=== PATIENT | male | born 1940 | race Caucasian/White ===

== ENCOUNTER 2016-12-19 11:32 | Inpatient (IN) | payer OTHER ==
--- NOTE | ~2016-12-19 | DS ---
Discharge Summary [facility] [address] [place]. [address] NAME: MARGUERITE ALAN : 42 STATUS : DIS IN PAT#: [id number] AGE: 76 ADM/REG DATE : 12/19/16 MR#: [id number] REPORT SERV DATE: 01/05/17 DICTATED BY: SYMONE ESPINOZA DATE: 01/04/17 REPORT STATUS : Draft TRANSCRIBED BY: EDVIN DATE: 01/04/17 Data Collection from hospitalization DISCHARGE DIAGNOSES: 1. 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 2. Hypertension. 3. Diabetes. 4. Anemia. 5. Osteoarthritis. 6. History of heart attack. 7. Heart disease. 8. End-stage renal disease, on hemodialysis. CONSULTATIONS: Dr. Afshin Davis. Dr. Swan. PROCEDURES: Right total knee revision arthroplasty, 12/19/2016. PATHOLOGY: Bone and joint, right knee, total knee - orthopedic hardware, degenerative changes - extensive. DISCHARGE MEDICATIONS: ProAir two puffs via inhaler every six hours as needed, Norvasc 5 mg twice a day, aspirin 81 mg daily, Lipitor 40 mg at bedtime, Symbicort two puffs via inhaler twice a day, Coreg 6.25 mg twice a day, Plavix 75 mg daily, fenofibrate 160 mg daily, Lasix 80 mg daily, Neurontin 100 mg as instructed and 300 mg at bedtime, DiaBeta 5 mg with breakfast and supper, Apresoline 50 mg four times a day, [place] 7.5/325 one to two tablets every 4-6 hours as needed, Humulin N 5 units subcutaneously twice a day, Imdur 240 mg daily, Habitrol one patch topically daily, Zantac 150 mg twice a day, Carafate 1 g twice a day, Coumadin 3 mg daily. CONDITION AT DISCHARGE: Stable. DISPOSITION: The patient was discharged home to be followed by home health care on a renal- diabetic diet with activities as instructed. He would follow up with me on 01/01/2017. HOSPITAL COURSE: This is a 76-year-old man, whom I had seen for recheck of right TKA pain. He had apparently been scheduled for revision of total right knee arthroplasty, but had that surgery canceled due to some cardiac issues that showed up on preop testing. He was now clear to undergo surgical intervention. The patient has failed right total knee arthroplasty which had been performed by another surgeon. Treatment options were discussed and it was elected to proceed with surgical intervention. He was admitted to the hospital at this time for further evaluation and treatment. Upon admission, he was taken to the operating room where he underwent the above-mentioned procedure. He tolerated this well and there were no complications. On postop day #1, he was doing well. He was resting. DANICA hose were in place. Dialysis therapy was going to be performed. Creatinine level was 2.66. The patient was seen by Dr. Pawan Swan. He had been asked to evaluate the patient regarding hemodialysis. The patient has end-stage renal disease. Plans were being made for hemodialysis therapy to be performed the following Discharge Summary [address] [address] NAME: MARGUERITE ALAN : 41 STATUS : DIS IN PAT#: [id number] AGE: 76 ADM/REG DATE : 12/19/16 MR#: [id number] REPORT SERV DATE: 01/05/17 DICTATED BY: SYMONE ESPINOZA DATE: 01/04/17 REPORT STATUS : Draft TRANSCRIBED BY: EDVIN DATE: 01/04/17 day. On the , he was doing well. He was participating with Physical Therapy. He had been evaluated by Occupational and Physical Therapy. Hemodialysis therapy was performed. On 12/22/2016, he was seen by Dr. Afshin Davis regarding right prosthetic knee infection. The patient had been found to have some "benign" fluid under the quadriceps upon incision on 12/19/2016. His hardware components were loose and were removed and new hardware was placed. There was only one culture sent from this fluid which grew sparse Staph species, yet to be identified. Gram stain showed occasional white blood cells but no organisms. No bone had been cultured. It was felt that this culture result could be a contaminant. Vancomycin was being given for now. Blood cultures were obtained. DiaBeta and Levemir were continued as well as level 2 sliding scale insulin. Imdur was also continued. He was being given Dulera inhaler. His Lipitor was continued as well as Plavix and aspirin. The next day, he had good pain control. He continued to undergo hemodialysis. He ended up sitting in the bedside chair. The patient said that he takes lactulose every other day for high ammonia level. Blood cultures revealed no growth at this time. On the , he said the right knee was sore after using it. His cultures had shown very sparse staph. He was going to be on IV Ancef for about six weeks. He continued to progress. Discharge planning was performed. On 12/26/2016, he was ambulating in his room. He had no new complaints. He was wanting to go home. Discharge instructions were given. Due to his improved and stable condition, he was discharged home to be followed by home health care with the above-stated instructions. Information collected by: Lorena Simons I submit the above information as my discharge summary. TG/MODL Jerad Espinoza M.D. / [id number] CC: Elmo Coon Lisa M Paul Cornea, M.D. Joseph Watlington, M.D.
--- NOTE | ~2016-12-19 | CN ---
Consultation Report [facility] [address] [place]. [address] NAME: MARGUERITE ALAN : 42 STATUS : ADM IN PAT#: [id number] AGE: 76 ADM/REG DATE : 12/19/16 MR#: [id number] REPORT SERV DATE: 12/22/16 DICTATED BY: LAMAR GAMING DATE: 12/22/16 REPORT STATUS : Draft TRANSCRIBED BY: MODChely DATE: 12/22/16 INFECTIOUS DISEASE CONSULTATION DATE OF CONSULTATION: REASON FOR CONSULT: Right prosthetic knee infection. HISTORY OF PRESENT ILLNESS: 76-year-old white male with a history of end-stage renal disease on hemodialysis, right knee replacement, right shoulder replacement, coronary artery disease, status post CABG, diabetes, hypertension, liver cirrhosis, who had an elective right prosthetic knee redo surgery. At about three years ago, he had a right knee replacement done at [facility] by Dr. Ho. The patient states that there were no immediate complications, but had persistent and progressive pain ever since. He needed something done, but because of coronary condition with stent placement, the surgery had to be delayed twice. He thinks he has had persistent swelling and pain in the knee. The pain got progressively worse that he might have had persistent warmth and maybe occasional redness. No fever, no chills, but he had some sweats. He thinks that he received some rounds of antibiotics from Dr. Ho in the past, but stopped seeing him about two years ago. He was referred instead to Dr. Alvarez. He thinks Dr. Alvarez tapped the knee in the past. I do not find any prior cultures in our computer. Three days ago, 12/19/2016, he had right knee surgery. There is some "benign" fluid under the quadriceps upon incision that was sent for culture. Hardware components were loose and were removed and new hardware was placed. There was only one culture sent from this fluid that grew sparse Staph species yet to be identified. Gram stain showed occasional white blood cells, no organisms. The patient complains some chronic dyspnea on exertion, some chronic abdominal pain, maybe some constipation. He eats well. He does not have urinary problems. Laboratory work shows WBC 3.8, hemoglobin 9.5, platelets 113. INR 4.4. Ammonia 53. PAST MEDICAL HISTORY: As I mentioned above plus there is a mention that the CT scan in the past showed evidence of liver cirrhosis with splenomegaly that he might have myelodysplastic syndrome. I am not sure how that diagnosis was made. He had the right shoulder replacement by Dr. Cueto some years ago and it gives him no problems, also history of hemorrhoids. SOCIAL HISTORY: He quit smoking in the past. He is retired. Lives alone. Does not work outdoors. ALLERGIES: NONE. MEDICATIONS ON ADMISSION: Albuterol, amlodipine, aspirin, Lipitor, Symbicort, carvedilol, Plavix, fenofibrate, Lasix, gabapentin, glyburide, hydralazine, insulin, Imdur, nicotine patch, Zantac, and Carafate. Consultation Report [address] [address] NAME: MARGUERITE ALAN : 42 STATUS : ADM IN [facility]#: [id number] AGE: 76 ADM/REG DATE : 12/19/16 MR#: [id number] REPORT SERV DATE: 12/22/16 DICTATED BY: LAMAR GAMING DATE: 12/22/16 REPORT STATUS : Draft TRANSCRIBED BY: EDVIN DATE: 12/22/16 PHYSICAL EXAMINATION: GENERAL: He is alert, awake. No acute distress. There is large abdomen. HEENT: Sclerae are white. No oral thrush. LUNGS: Clear to auscultation. No wheezes, rhonchi, or rales. HEART: Regular rhythm. ABDOMEN: Very large, obese, nontender to palpation. EXTREMITIES: Right knee with surgical dressing. Arms, very dark skin, few scars. Left forearm AV fistula with good thrill. LABORATORY WORK: As I mentioned. ASSESSMENT AND PLAN: 1. The patient with chronic right knee pain after right knee replacement. He had a redo procedure three days ago. Operative cultures growing sparse Staph species. Unfortunately, only one culture was obtained and the intraoperative description was not suggestive of an of purulence or gross infection. No bone was cultured. This could be a contaminant. Probably, need to discuss with Dr. Alvarez. There is no bone pathology. Use vancomycin for now. Blood cultures were sent. 2. End-stage renal disease, on hemodialysis. Obviously, this could be a source of infection. 3. Diabetes, coronary artery disease, hypertension, and cirrhosis. I discussed with the patient. EMILIO/MODL Lamar Gaming M.D. / [id number] CC: Elmo Coon LISA M
--- NOTE | ~2016-12-19 | OP ---
Record Of Operation [facility] [address] [place]. 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 POSTOPERATIVE DIAGNOSIS: Failed right total knee arthroplasty, done by another surgeon. PROCEDURE: Right total knee revision arthroplasty. [employer] SUPERINTENDENT: See chart. DESCRIPTION OF PROCEDURE: The patient was taken to the operating room and placed supine on the table in normal fashion without incident. General anesthetic was induced per the anesthesiologist. The patient was carefully positioned, padded, prepped, and draped in normal sterile fashion. The right lower extremity was exsanguinated. Tourniquet was inflated to 350. A sharp dissection was made through the old incision with electrocautery through the fat. Sharp quad splitting approach was carried out. A benign-appearing fluid was sent for cultures and Gram stain. The patella was subluxed and the tibial insert was removed with an osteotome. The femoral and tibial components were easily removed with flexible osteotomes and has obvious loosening with severe lysis under both of them. The cement was meticulously debrided. Sequential reamers were used to an 18 in the femur and tibia and the intramedullary guide was used to cut the proximal tibia and distal femur. Ruler was used to verify flexion and extension balance. The remaining cuts were made using intramedullary guides on the distal femur. With trial components in place, there was excellent medial and lateral balance and excellent flexion and extension balance. The patella was cut with an oscillating saw and drilled with the patella drill guide. With the trial patella in place, there was excellent patellar tracking. All surfaces were copiously irrigated with pulsatile lavage and the components were assembled on the back table. Premixed antibiotic was pressurized in a doughy phase in the tibia. Tibial component placed, impacted, and excess cement removed. Cement was pressurized in the femur and placed on the posterior runners of the femoral component, which was placed, impacted, and excess cement removed. Knee was brought out into extension on a trial spacer. Cement was pressurized in the patella. The patellar component was placed, held with a clamp, and excess cement removed. Once all cement was hardened, the knee was taken through range of motion. Further extruded cement was removed with a small osteotome. The actual insert was then placed, impacted, and checked to be sure it was down snug. The knee was closed in layered fashion over medium ConstaVac drain superolaterally. The wound was dressed sterilely. The patient was awakened and taken to the postanesthesia care unit without incident. COMPLICATIONS: None. SPECIMENS: Components and cultures. ESTIMATED BLOOD LOSS: Trace. Record Of Operation [address] [place]. [address] NAME: MARGUERITE ALAN : 42 STATUS : ADM IN [facility]#: [id number] AGE: 76 ADM/REG DATE : 12/19/16 MR#: [id number] REPORT SERV DATE: 12/20/16 DICTATED BY: SYMONE ESPINOZA DATE: 12/20/16 REPORT STATUS : Draft TRANSCRIBED BY: EDVIN DATE: 12/20/16 WTB/EDVIN Jerad Espinoza M.D. / [id number] CC: Elmo Coon LISA M *
[~2016-12-19 11:32] MED LIST: APRES50 PO; ASAB PO; CONSTULOSE PO; COREG6 PO; DIABETA5 PO; ENULOSE PO; FLORASTOR250 MG PO; HABIT21 TOP; HUMULIN N1 ML SC; ICY HOT16 % TOP; IMDUR120 PO; L80 PO; LIPITOR40 PO; LOFIB160 PO; NEUR100 PO; NEUR300 PO; NICODERM C21 MG/241 TOP; NORCO1 TAB PO; NORV5 PO; PLAVIX PO; PROAIR HFA INH; PROAIRRESP INH; PROTONIX PO; SUCR PO; SYMBICORT 80/4.1 INH INH; VOLTAREN1 % TOP; XIFAXAN550 MG PO; ZANTAC 150 PO; ZANTAC150 MG PO
[2016-12-19 15:29] LABS: WBC (NOT ORDERED) (RFLEX) 0 (0-5)
[2016-12-19 15:31] LABS: BASOPHILS 1.1 %; BASOPHILS ABSOLUTE 0.07 10/3/uL (0.0-0.16); EOSINOPHILS 2.3 %; EOSINOPHILS ABSOLUTE 0.14 10/3/uL (0.0-0.53); IMMATURE GRANULOCYTES 0.8 %; IMMATURE GRANULOCYTES ABSOLUTE 0.05 10/3/uL (0.0-0.11); LYMPHOCYTES 10.1 %; LYMPHOCYTES ABSOLUTE 0.62 10/3/uL (0.67-4.30); MEAN CORPUSCULAR HEMOGLOB 31.3 pg (26.0-34.0); MEAN PLATELET VOLUME 10.6 fL (9.2-13.0); MONOCYTES 9.3 %; MONOCYTES ABSOLUTE 0.57 10/3/uL (0.21-1.20); NEUTROPHILS 76.4 %; NEUTROPHILS ABSOLUTE 4.66 10/3/uL (2.02-8.40); PLATELET COUNT 134 10/3/uL (150-400); WHITE BLOOD CELLS 6.1 10/3/uL (4.5-10.5)
[2016-12-19 15:34] LABS: HEMATOCRIT 38.9 % (40.0-51.0); HEMOGLOBIN 12.5 g/dL (13.6-17.8); MANUAL DIFF NO %; MEAN CORPUS HGB CONC 32.1 g/dL (32.0-36.0); MEAN CORPUSCULAR VOLUME 97.3 fL (80-100); RBC DISTRIBUTION WIDTH 17.2 % (12.0-16.0)
[2016-12-19 15:41] LABS: INTERNATIONAL NORMAL RATI 1.2 UNITS (-); PROTIME (NOT ORD) 15.4 SEC (12.0-14.5)
[2016-12-19 15:44] LABS: BUN (BLOOD UREA NITROGEN) 20 MG/DL (6-23); CALCIUM, SERUM 9.2 MG/DL (8.5-10.4); CHLORIDE, SERUM 105 MMOL/L (96-112); CO2 (CARBON DIOXIDE) 28 MMOL/L (24-34); CREATININE 2.06 MG/DL (0.70-1.30); GFR AFRICAN AMERICAN 35 ML/MIN (>=60); GFR NON AFRICAN AMERICAN 31 ML/MIN (>=60); GLUCOSE, SERUM 162 MG/DL (60-99); POTASSIUM, SERUM 4.4 MMOL/L (3.5-5.3); SODIUM, SERUM 136 MMOL/L (135-148)
[2016-12-19 15:49] LABS: ASCORBIC ACID (UR NOT ORDER) NEG (NEG); BILIRUBIN, URINE NEGATIVE (NEG); KETONE, URINE NEGATIVE (NEG); LEUKOCYTE ESTERASE(NOT OR NEG (NEG)
[2016-12-20 05:26] LABS: INTERNATIONAL NORMAL RATI 1.3 UNITS (-); PROTIME (NOT ORD) 16.3 SEC (12.0-14.5)
[2016-12-20 05:37] LABS: CHLORIDE, SERUM 106 MMOL/L (96-112); CO2 (CARBON DIOXIDE) 27 MMOL/L (24-34); GLUCOSE, SERUM 160 MG/DL (60-99); SODIUM, SERUM 142 MMOL/L (135-148)
[2016-12-20 05:39] LABS: BUN (BLOOD UREA NITROGEN) 29 MG/DL (6-23); CALCIUM, SERUM 8.1 MG/DL (8.5-10.4); CREATININE 2.66 MG/DL (0.70-1.30); GFR AFRICAN AMERICAN 26 ML/MIN (>=60); GFR NON AFRICAN AMERICAN 22 ML/MIN (>=60)
[2016-12-21 08:46] LABS: BASOPHILS 0.2 %; BASOPHILS ABSOLUTE 0.01 10/3/uL (0.0-0.16); EOSINOPHILS 0.2 %; EOSINOPHILS ABSOLUTE 0.01 10/3/uL (0.0-0.53); HEMOGLOBIN 9.2 g/dL (13.6-17.8); IMMATURE GRANULOCYTES 0.2 %; IMMATURE GRANULOCYTES ABSOLUTE 0.01 10/3/uL (0.0-0.11); LYMPHOCYTES 5.6 %; LYMPHOCYTES ABSOLUTE 0.25 10/3/uL (0.67-4.30); MEAN CORPUS HGB CONC 33.3 g/dL (32.0-36.0); MEAN CORPUSCULAR HEMOGLOB 31.7 pg (26.0-34.0); MEAN CORPUSCULAR VOLUME 95.2 fL (80-100); MEAN PLATELET VOLUME 10.4 fL (9.2-13.0); MONOCYTES 10.3 %; MONOCYTES ABSOLUTE 0.46 10/3/uL (0.21-1.20); NEUTROPHILS 83.5 %; NEUTROPHILS ABSOLUTE 3.72 10/3/uL (2.02-8.40); PLATELET COUNT 99 10/3/uL (150-400); RBC DISTRIBUTION WIDTH 16.5 % (12.0-16.0); WHITE BLOOD CELLS 4.5 10/3/uL (4.5-10.5)
[2016-12-21 08:47] LABS: HEMATOCRIT 27.6 % (40.0-51.0); MANUAL DIFF NO %
[2016-12-21 08:54] LABS: INTERNATIONAL NORMAL RATI 1.9 UNITS (-); PROTIME (NOT ORD) 21.8 SEC (12.0-14.5)
[2016-12-21 08:57] LABS: CALCIUM, SERUM 8.2 MG/DL (8.5-10.4); CHLORIDE, SERUM 102 MMOL/L (96-112); CO2 (CARBON DIOXIDE) 27 MMOL/L (24-34); POTASSIUM, SERUM 4.2 MMOL/L (3.5-5.3); SODIUM, SERUM 140 MMOL/L (135-148)
[2016-12-21 09:00] LABS: BUN (BLOOD UREA NITROGEN) 43 MG/DL (6-23); CREATININE 3.17 MG/DL (0.70-1.30); GFR AFRICAN AMERICAN 21 ML/MIN (>=60); GFR NON AFRICAN AMERICAN 18 ML/MIN (>=60); GLUCOSE, SERUM 209 MG/DL (60-99)
[2016-12-22 06:28] LABS: BUN (BLOOD UREA NITROGEN) 49 MG/DL (6-23); CALCIUM, SERUM 8.3 MG/DL (8.5-10.4); CHLORIDE, SERUM 108 MMOL/L (96-112); CO2 (CARBON DIOXIDE) 24 MMOL/L (24-34); CREATININE 3.13 MG/DL (0.70-1.30); GFR AFRICAN AMERICAN 21 ML/MIN (>=60); GFR NON AFRICAN AMERICAN 18 ML/MIN (>=60); GLUCOSE, SERUM 116 MG/DL (60-99); POTASSIUM, SERUM 3.7 MMOL/L (3.5-5.3); SODIUM, SERUM 143 MMOL/L (135-148)
[2016-12-22 06:29] LABS: INTERNATIONAL NORMAL RATI 4.4 UNITS (-)
[2016-12-22 06:30] LABS: PROTIME (NOT ORD) 41.4 SEC (12.0-14.5)
[2016-12-22 06:32] LABS: BASOPHILS 0.8 %; BASOPHILS ABSOLUTE 0.03 10/3/uL (0.0-0.16); EOSINOPHILS 2.9 %; EOSINOPHILS ABSOLUTE 0.11 10/3/uL (0.0-0.53); HEMOGLOBIN 9.5 g/dL (13.6-17.8); IMMATURE GRANULOCYTES 0.5 %; IMMATURE GRANULOCYTES ABSOLUTE 0.02 10/3/uL (0.0-0.11); LYMPHOCYTES 9.9 %; LYMPHOCYTES ABSOLUTE 0.38 10/3/uL (0.67-4.30); MEAN CORPUS HGB CONC 32.8 g/dL (32.0-36.0); MEAN CORPUSCULAR VOLUME 94.8 fL (80-100); MEAN PLATELET VOLUME 10.8 fL (9.2-13.0); MONOCYTES 13.3 %; MONOCYTES ABSOLUTE 0.51 10/3/uL (0.21-1.20); NEUTROPHILS 72.6 %; NEUTROPHILS ABSOLUTE 2.78 10/3/uL (2.02-8.40); PLATELET COUNT 113 10/3/uL (150-400); RBC DISTRIBUTION WIDTH 16.9 % (12.0-16.0); RED CELL COUNT 3.06 10/6/uL (4.7-6.1); WHITE BLOOD CELLS 3.8 10/3/uL (4.5-10.5)
[2016-12-22 06:33] LABS: MANUAL DIFF NO %
[2016-12-23 05:06] LABS: INTERNATIONAL NORMAL RATI 3.4 UNITS (-); PROTIME (NOT ORD) 33.8 SEC (12.0-14.5)
[2016-12-24 07:18] LABS: INTERNATIONAL NORMAL RATI 2.7 UNITS (-)
[2016-12-24 07:20] LABS: PROTIME (NOT ORD) 28.7 SEC (12.0-14.5)
[2016-12-24 10:31] LABS: BASOPHILS 1.2 %; BASOPHILS ABSOLUTE 0.04 10/3/uL (0.0-0.16); EOSINOPHILS 3.7 %; EOSINOPHILS ABSOLUTE 0.12 10/3/uL (0.0-0.53); HEMATOCRIT 28.1 % (40.0-51.0); HEMOGLOBIN 9.2 g/dL (13.6-17.8); IMMATURE GRANULOCYTES 0.3 %; IMMATURE GRANULOCYTES ABSOLUTE 0.01 10/3/uL (0.0-0.11); LYMPHOCYTES 15.7 %; LYMPHOCYTES ABSOLUTE 0.51 10/3/uL (0.67-4.30); MEAN CORPUS HGB CONC 32.7 g/dL (32.0-36.0); MEAN CORPUSCULAR VOLUME 94.6 fL (80-100); MEAN PLATELET VOLUME 11.1 fL (9.2-13.0); MONOCYTES 14.2 %; MONOCYTES ABSOLUTE 0.46 10/3/uL (0.21-1.20); NEUTROPHILS 64.9 %; NEUTROPHILS ABSOLUTE 2.11 10/3/uL (2.02-8.40); PLATELET COUNT 115 10/3/uL (150-400); RBC DISTRIBUTION WIDTH 16.6 % (12.0-16.0); RED CELL COUNT 2.97 10/6/uL (4.7-6.1); WHITE BLOOD CELLS 3.3 10/3/uL (4.5-10.5)
[2016-12-24 10:35] LABS: MANUAL DIFF NO %
[2016-12-24 10:42] LABS: ALBUMIN 2.7 G/DL (3.5-5.0); CALCIUM, SERUM 8.4 MG/DL (8.5-10.4); CHLORIDE, SERUM 106 MMOL/L (96-112); CO2 (CARBON DIOXIDE) 24 MMOL/L (24-34); CREATININE 3.46 MG/DL (0.70-1.30); GFR AFRICAN AMERICAN 19 ML/MIN (>=60); GFR NON AFRICAN AMERICAN 16 ML/MIN (>=60); SODIUM, SERUM 142 MMOL/L (135-148)
[2016-12-24 10:43] LABS: BUN (BLOOD UREA NITROGEN) 69 MG/DL (6-23); GLUCOSE, SERUM 154 MG/DL (60-99); PHOSPHORUS, SERUM 3.8 MG/DL (2.5-4.5)
[2016-12-25 14:11] LABS: BASOPHILS 0.9 %; BASOPHILS ABSOLUTE 0.03 10/3/uL (0.0-0.16); EOSINOPHILS 2.7 %; EOSINOPHILS ABSOLUTE 0.09 10/3/uL (0.0-0.53); HEMOGLOBIN 9.5 g/dL (13.6-17.8); IMMATURE GRANULOCYTES 0.9 %; IMMATURE GRANULOCYTES ABSOLUTE 0.03 10/3/uL (0.0-0.11); LYMPHOCYTES 16.3 %; LYMPHOCYTES ABSOLUTE 0.54 10/3/uL (0.67-4.30); MEAN CORPUS HGB CONC 32.8 g/dL (32.0-36.0); MEAN CORPUSCULAR HEMOGLOB 31.3 pg (26.0-34.0); MEAN CORPUSCULAR VOLUME 95.4 fL (80-100); MEAN PLATELET VOLUME 10.8 fL (9.2-13.0); MONOCYTES 11.5 %; MONOCYTES ABSOLUTE 0.38 10/3/uL (0.21-1.20); NEUTROPHILS 67.7 %; NEUTROPHILS ABSOLUTE 2.24 10/3/uL (2.02-8.40); PLATELET COUNT 117 10/3/uL (150-400); RBC DISTRIBUTION WIDTH 16.2 % (12.0-16.0); RED CELL COUNT 3.04 10/6/uL (4.7-6.1); WHITE BLOOD CELLS 3.3 10/3/uL (4.5-10.5)
[2016-12-25 14:12] LABS: MANUAL DIFF NO %
[2016-12-25 14:20] LABS: INTERNATIONAL NORMAL RATI 1.8 UNITS (-); PROTIME (NOT ORD) 20.4 SEC (12.0-14.5)
[2016-12-25 14:22] LABS: CALCIUM, SERUM 8.7 MG/DL (8.5-10.4); CHLORIDE, SERUM 109 MMOL/L (96-112); CO2 (CARBON DIOXIDE) 23 MMOL/L (24-34); CREATININE 3.47 MG/DL (0.70-1.30); GFR AFRICAN AMERICAN 19 ML/MIN (>=60); GFR NON AFRICAN AMERICAN 16 ML/MIN (>=60); PHOSPHORUS, SERUM 4.3 MG/DL (2.5-4.5); POTASSIUM, SERUM 3.9 MMOL/L (3.5-5.3); SODIUM, SERUM 145 MMOL/L (135-148)
[2016-12-25 14:23] LABS: BUN (BLOOD UREA NITROGEN) 82 MG/DL (6-23); GLUCOSE, SERUM 188 MG/DL (60-99)
[2016-12-26 05:38] LABS: HEMATOCRIT 28.2 % (40.0-51.0); HEMOGLOBIN 9.4 g/dL (13.6-17.8); MEAN CORPUS HGB CONC 33.3 g/dL (32.0-36.0); MEAN CORPUSCULAR HEMOGLOB 31.8 pg (26.0-34.0); MEAN CORPUSCULAR VOLUME 95.3 fL (80-100); PLATELET COUNT 141 10/3/uL (150-400); RBC DISTRIBUTION WIDTH 16.1 % (12.0-16.0); RED CELL COUNT 2.96 10/6/uL (4.7-6.1); WHITE BLOOD CELLS 3.9 10/3/uL (4.5-10.5)
[2016-12-26 05:39] LABS: MANUAL DIFF YES %
[2016-12-26 05:43] LABS: INTERNATIONAL NORMAL RATI 1.8 UNITS (-)
[2016-12-26 05:52] LABS: ALBUMIN 2.9 G/DL (3.5-5.0); CALCIUM, SERUM 8.8 MG/DL (8.5-10.4); CHLORIDE, SERUM 108 MMOL/L (96-112); CO2 (CARBON DIOXIDE) 27 MMOL/L (24-34); POTASSIUM, SERUM 3.8 MMOL/L (3.5-5.3); SODIUM, SERUM 144 MMOL/L (135-148)
[2016-12-26 05:53] LABS: BUN (BLOOD UREA NITROGEN) 65 MG/DL (6-23); CREATININE 2.76 MG/DL (0.70-1.30); GFR AFRICAN AMERICAN 25 ML/MIN (>=60); GFR NON AFRICAN AMERICAN 21 ML/MIN (>=60); GLUCOSE, SERUM 63 MG/DL (60-99); PHOSPHORUS, SERUM 3.1 MG/DL (2.5-4.5)
[2016-12-26 06:33] LABS: LYMPHOCYTES 23 %; MONOCYTES 15 %; MONOCYTES ABSOLUTE (CALC) 0.59 10/3/uL (0.21-1.20); NEUTROPHILS ABSOLUTE (CALC) 2.42 10/3/uL (2.02-8.40); PLATELET ESTIMATE SLT DEC (ADEQUATE); RBC MORPHOLOGY NORM (NORMAL); SEGMENTED NEUTROPHIL (0) 62 %; TOTAL NUCLEATED CELLS 100
[2016-12-26] MEDS ORDERED: COUMADIN3 MG PO (14:23)
[2016-12-26] MEDS ORDERED: NORCO1 TA2 PO (14:24)
== END 2016-12-26 15:49 | disposition home or self-care (01) | DRG 466 ==
LOC: SDC/OF 11:32 → PACU 18:28 → 3SO 20:02
PROVIDERS: Internal Medicine Nephrology; Nurse Practitioner; Specialist
PROC: 0SPC0JZ Removal of Synthetic Substitute from Right Knee Joint, Open Approach (ICD-10-PCS; 2016-12-19)
PROC: 0SRC0J9 Replacement of Right Knee Joint with Synthetic Substitute, Cemented, Open Approach (ICD-10-PCS; principal; 2016-12-19 15:15)
PROC: 5A1D60Z (ICD-10-PCS; 2016-12-21)
DX: T84.092A Other mechanical complication of internal right knee prosthesis, initial encounter (principal); N18.6 End stage renal disease; I12.0 Hypertensive chronic kidney disease with stage 5 chronic kidney disease or end stage renal disease; E11.22 Type 2 diabetes mellitus with diabetic chronic kidney disease; K74.60 Unspecified cirrhosis of liver; I25.10 Atherosclerotic heart disease of native coronary artery without angina pectoris; Z99.2 Dependence on renal dialysis; E78.5 Hyperlipidemia, unspecified; Z95.1 Presence of aortocoronary bypass graft; Z95.5 Presence of coronary angioplasty implant and graft; F17.210 Nicotine dependence, cigarettes, uncomplicated
CPT/HCPCS: 36415; 71020; 80048; 80069; 81001; 82140; 82962; 83735; 85014; 85018; 85025; 85610; 86850; 86900; 86901; 87015; 87040; 87070; 87075; 87077; 87102; 87116; 87186; 87205; 87641; 88300; 88304; 88311; 93005; 94640; 97110-GP; 97116-GP; 97161-GP; 97165-GO; 97530-GO; 97535-GO; A9270-GY; C1776; G0257; J0690; J1885; J2250; J2270; J2405; J2710; J2795; J3010; J3370

== ENCOUNTER 2016-12-30 23:26 | Inpatient (IN) | payer OTHER ==
--- NOTE | ~2016-12-30 | CN ---
Consultation Report [facility] [address] [place]. [address] NAME: MARGUERITE SARAVIA : 42 STATUS : ADM IN PAT#: [id number] AGE: 76 ADM/REG DATE : 12/30/16 MR#: [id number] REPORT SERV DATE: 01/03/17 DICTATED BY: BUNNY HART DATE: 01/03/17 REPORT STATUS : Draft TRANSCRIBED BY: MODL DATE: 01/03/17 GI CONSULTATION DATE OF CONSULTATION: 01/03/2017 REASON FOR CONSULTATION: Evaluation and management of heme-positive stools. HISTORY OF PRESENT ILLNESS: Mr. Marguerite Saravia is a 76-year-old male patient, who is known to Dr. Conrado Paulino in the outpatient setting, who presented to [facility] on 12/30/2016 with a chief complaint of fever in the setting of a recent right total knee replacement. He had recently been inpatient for right total knee replacement at the direction of Dr. Alvarez on 12/19/2016. He had what appears as a set of cultures apparently that were obtained intraoperatively, which did grow some Staph species. He was eventually evaluated by Infectious Disease DrYosef Davis secondary to the positive cultures. He was placed on antibiotics of vancomycin, and he was subsequently discharged on 12/26/2016. He has complaints of chronic abdominal pain. He states that it is a bandlike sensation from the right side over to the left. He says that typically when he goes home, his pain in his abdomen worsens, and this prompted him to come back to the hospital. He was recently seen by our group in August of 2016 at [facility] for melena, and did undergo an EGD at the direction of Dr. Cerda on 08/22/2016. Showed two duodenal ulcers, nonbleeding at that time. Otherwise unremarkable exam. I felt this could be the likely source of his melena. His last colonoscopy was done by Dr. Paulino in 2010 showing severe diverticulosis throughout his colon as well as internal hemorrhoids. He has a history also of hepatic encephalopathy and cirrhosis of the liver, and elevated AMA level, and was to be seen by Dr. Christo Leonardo for concerns for primary biliary cirrhosis. He has had an ultrasound of the abdomen dated 01/02/2017 showing gallstones, chronic cholecystitis, liver enlarged with increased echogenicity suggesting underlying fibrotic changes, common bile duct normal at 0.49 cm, also states that there gallstones present, the gallstones form a fundal type mass measuring 2.5 cm appearing to all the intraluminal. His hemoglobin presently is 9.2. Stool samples did show Hemoccult-positive. When he was admitted on 12/31/2016, he had a hemoglobin of 7.4. He was transfused with two units of packed red blood cells with improvement to 9.2. In December, his hemoglobin was 12.5. After surgery that decrease into the 9 range. He tells me that he has black stools, which is a chronic complaint of his. He denies bright red blood per rectum. He endorses chronic abdominal pain. He has stated he has lost weight recently secondary to early satiety. I have discussed with the patient. At present, he is on Coumadin. He is on Plavix. He is on aspirin. We will not pursue endoscopy at this point in time. General Surgery has been consulted by the [facility] to evaluate for his abdominal pain and abnormal ultrasound findings. It was planned to put him on a PPI which he is not receiving iron and monitor his labs. PAST MEDICAL HISTORY: Positive for myelodysplastic syndrome, diverticulosis, colon polyps, internal hemorrhoids, end-stage renal disease on dialysis, coronary artery disease, previous CABG, [place] in 2016, pneumonia, hypertension, diabetes, confusion, falls, recent right knee replacement with infection, and hepatic encephalopathy. Consultation Report [address] [place]. [address] NAME: MARGUERITE SARAVIA : 42 STATUS : ADM IN [facility]#: [id number] AGE: 76 ADM/REG DATE : 12/30/16 MR#: [id number] REPORT SERV DATE: 01/03/17 DICTATED BY: BUNNY HART DATE: 01/03/17 REPORT STATUS : Draft TRANSCRIBED BY: EDVIN DATE: 01/03/17 SOCIAL HISTORY: No alcohol, tobacco, or illicits. No NSAIDs. FAMILY HISTORY: Noncontributory from a GI standpoint. ALLERGIES: NONE. HOME MEDICATIONS: Albuterol, Norvasc, aspirin, Lipitor, Symbicort, Coreg, Plavix, fenofibrate, Lasix, Neurontin, DiaBeta, Apresoline, [place], Imdur, Habitrol, and Zantac. REVIEW OF SYSTEMS: A 10-point review of systems has been obtained with pertinent positives being addressed in the history of present illness. PHYSICAL EXAMINATION: VITAL SIGNS: Temperature 97.9, pulse 74, respirations 14, and blood pressure 134/59. NEUROLOGIC: Reveals an alert, chronically ill-appearing male, resting in bed. GENERAL: Cooperative, in apparent distress. He is awake. He is alert. He is oriented x3. He has no signs of asterixis. HEAD, EARS, EYES, NOSE, AND THROAT: Anicteric. Pupils are equal, round, and reactive to light and accommodation. Normocephalic and atraumatic. NECK: No JVD. No palpable nodes. Supple. LUNGS: Decreased throughout. Normal respiratory effort exhibited. CARDIOVASCULAR SYSTEM: Regular rate and rhythm. ABDOMEN: Soft, nondistended. No ascites palpated. Active bowel sounds. Really nontender to exam. No organomegaly appreciated. EXTREMITIES: Mild lower extremity edema. SKIN: Warm, dry, and intact with multiple ecchymotic areas. PERTINENT LABORATORY DATA: Sodium is 138, potassium 3.9, BUN is 75, and creatinine 3.72. White count is 4.9, hemoglobin 9.2, hematocrit 27.7, and platelet count 116. INR 2.3. Total bilirubin 0.7, alkaline phosphatase 127, ALT 56, AST 89, and ammonia 59. Hepatitis panel is negative. ASSESSMENT: 1. Hemoccult-positive stools/melena. 2. Anemia, acute on chronic. 3. Abdominal pain with a history of gallstones. 4. End-stage renal disease with dialysis. 5. Fever with recent right total knee revision, presently on Coumadin. 6. Coronary artery disease, history of myocardial infarction, on Plavix. 7. History of a duodenal ulcer on EGD in August of this year. PLAN: 1. We will put him on a PPI. Consultation Report [address] [place]. [address] NAME: MARGUERITE SARAVIA : 42 STATUS : ADM IN [facility]#: [id number] AGE: 76 ADM/REG DATE : 12/30/16 MR#: [id number] REPORT SERV DATE: 01/03/17 DICTATED BY: BUNNY HART DATE: 01/03/17 REPORT STATUS : Draft TRANSCRIBED BY: MODChely DATE: 01/03/17 2. Check an AMA. 3. No immediate plans for endoscopy. 4. General Surgery consult per Renal for gallstones. 5. There was a question of some probability of primary biliary cirrhosis. We will obtain further labs, question consultation with Christo Leonardo at some point. GISELA/EDVIN Ubnny ALISA Bob / [id number] CC: Prince Villegas M.D.
--- NOTE | ~2016-12-30 | DS ---
Discharge Summary [facility] [address] [place]. [address] NAME: MARGUERITE ALAN : 42 STATUS : DIS IN PAT#: [id number] AGE: 76 ADM/REG DATE : 12/30/16 MR#: [id number] REPORT SERV DATE: 01/22/17 DICTATED BY: THEO COLE DATE: 01/18/17 REPORT STATUS : Draft TRANSCRIBED BY: EDVIN DATE: 01/18/17 Data Collection from hospitalization DISCHARGE DIAGNOSES: 1. End-stage renal disease. 2. History of right total knee arthroplasty revision. 3. Hypertension. 4. Type 2 diabetes mellitus. 5. Coronary artery disease, status post coronary artery bypass grafting. 6. Cirrhosis. 7. Elevated liver function tests. 8. Hemoccult-positive stool. 9. Anemia. 10.History of myelodysplastic syndrome. 11.History of diverticulosis. 12.History of myocardial infarction. CONSULTATIONS: 1. Humberto Hernandez M.D. 2. ALISA Horton. 3. Afshin Davis M.D. 4. Jerad Alvarez M.D. PROCEDURES PERFORMED: Gallbladder ultrasound on 01/02/2017. MEDICATIONS: Norvasc 5 mg twice a day; aspirin 81 mg daily; Symbicort two puffs via inhaler twice a day; Coreg 6.25 mg twice a day; Ancef as instructed; Plavix 75 mg daily; fenofibrate 160 mg daily; Lasix 80 mg daily; Neurontin 100 mg in the morning, afternoon, and evening as instructed; Neurontin 300 mg at bedtime; DiaBeta 5 mg twice a day; Apresoline 50 mg four times a day; [place] 7.5/325 one to two tablets every four hours as needed; Humalog as instructed; Imdur 240 mg daily; Constulose 30 mL twice a day as needed; Zantac 150 mg twice a day; Carafate 1 g twice a day (1 g before meals and at bedtime); and Coumadin 2 mg daily. Lipitor was placed on hold. CONDITION AT DISCHARGE: Stable. DISPOSITION: The patient was discharged home to be followed by home health care on a renal- diabetic diet with activities as instructed. He would follow up with Dr. Ronan Alvarez one week following discharge. HOSPITAL COURSE: This is a 76-year-old man who dialyzes on Mondays, Wednesdays, and Fridays via a left upper extremity fistula. He was recently an inpatient at [facility] with right total knee replacement, undertaken by Dr. Alvarez. The procedure was completed on 12/19/2016. A set of cultures were taken apparently intraoperatively, which grew Staph species. Subsequently, the patient was evaluated by Infectious Disease with Dr. Afshin Davis. In review of his initial consultation, the patient was initially placed on vancomycin and there was a question of contamination of the culture. The culture was subsequently shown to grow no growth as resulted on 12/27/2016. The patient was sent home Discharge Summary [address] [place]. [address] NAME: MARGUERITE ALAN : 41 STATUS : DIS IN PAT#: [id number] AGE: 76 ADM/REG DATE : 12/30/16 MR#: [id number] REPORT SERV DATE: 01/22/17 DICTATED BY: THEO COLE DATE: 01/18/17 REPORT STATUS : Draft TRANSCRIBED BY: EDVIN DATE: 01/18/17 post hospital stay on 12/26/2016 and returned overnight to the [facility] complaining of the onset of fevers. He was initially evaluated at [facility] and transitioned here. While in the Emergency Department at [facility], he was given IV Levaquin as well as IV vancomycin. He had maintained his usual hemodialysis schedule. He had no complaints of nausea, vomiting, or diarrhea. He had no chest pain. He was admitted to the hospital at this time for further evaluation and treatment. Upon admission, he was going to be treated empirically with vancomycin and Levaquin. Stools were going to be checked for blood. He was transfused two units of packed red cells during his hemodialysis treatment that day. Phosphorus was going to be treated. We would protect the left upper extremity fistula. We were going to culture his wound. DuoNebs were going to begin. The patient was seen by Dr. Afshin Davis. The patient was lethargic. He felt warm to the touch. His abdomen was soft. He had no pain in the right knee with range of motion. He had been started on empiric vancomycin and Levaquin. Ammonia level was going to be checked. The following day, he was seen by Dr. Ronan Alvarez. The patient had undergone a right total knee replacement the week prior to this admission. He said his knee felt great. He said it felt better than preoperatively. He had minimal bloody drainage on his dressing. He had minimal ecchymoses. He had been on antibiotics due to a positive culture intraoperatively. DVT prophylaxis was being provided. He was encouraged to participate with Physical Therapy. Blood cultures were pending. Lactulose was adjusted. His T-max was 100. Blood pressure was not low. He said he was feeling better. He does have elevated liver function tests. Ammonia level was 7.1. AST was elevated at 209 and ALT was elevated at 91. On 01/02/2017, he seemed to be feeling better. He reported some acute right abdominal pain. He has had black stools for several days. Gallbladder ultrasound was requested. Liver function tests were improving. Later that day, gallbladder ultrasound was performed. He was evaluated by Occupational Therapy. He said he was feeling better. Glyburide and sliding scale insulin continued. His blood pressure was stable. On 01/03/2017, he was up sitting in a bedside chair. His right knee nehemiah had been removed. Steri-Strips were applied. A new dressing was placed. DANICA hose were in place. He has a history of previous duodenal ulcers. The patient does have chronic cholelithiasis. He still had some black stools. Blood culture results remain negative. He was seen by Luis Bob for evaluation and management of Heme-positive stools. The patient has a history of hepatic encephalopathy and cirrhosis of the liver. He had been seen by Dr. Christo Leonardo for concerns of primary biliary cirrhosis. His ultrasound on 01/02/2017 had shown gallstones, chronic cholecystitis, liver enlarged with increasing echogenicity suggesting underlying fibrotic changes, common bile duct normal at 0.49 cm, gallstones were present. These gallstones form a fundal-type mass measuring 2.5 cm appearing intraluminal. Stool samples were Hemoccult positive. He had been transfused two units of packed red blood cells. He denied any bright red blood per rectum. His black stools were a chronic complaint of his. He said he had lost weight recently secondary to early satiety. The patient is on Coumadin, Plavix, and aspirin. We were not going to pursue endoscopy at this point in time. Proton pump inhibitor was going to begin. AMA was going to be checked. The following day, he was seen by Dr. Humberto Hernandez regarding chronic abdominal pain and gallstones and recommendation regarding surgical management. Liver enzymes were Discharge Summary [place] [address] [place] [address] NAME: MARGUERITE ALAN : 41 STATUS : DIS IN PAT#: [id number] AGE: 76 ADM/REG DATE : 12/30/16 MR#: [id number] REPORT SERV DATE: 01/22/17 DICTATED BY: THEO COLE. DATE: 01/18/17 REPORT STATUS : Draft TRANSCRIBED BY: EDVIN DATE: 01/18/17 unremarkable. His gallbladder ultrasound had shown gallstones with evidence for chronic cholecystitis and evidence for cirrhosis. There were no definite symptoms of biliary colic and certainly no evidence for acute cholecystitis at this time. The patient seemed to be stable at this time. His symptoms were not entirely consistent with biliary colic. It was felt that his risk for surgical intervention would be extremely high in the setting of primary biliary cirrhosis, also with the patient being on Plavix and Coumadin. He did not recommend elective cholecystectomy at this time. He was not going to recommend cholecystectomy unless the patient had life-threatening complications such as acute cholecystitis or biliary pancreatitis. Hemodialysis therapy was performed. He still had some right upper quadrant pain, but it had mildly improved. The patient said he has not had a bowel movement since 01/02/2017. Discharge planning was performed. He had been ambulating in the halls. He was depressed regarding his current health issues. Creatinine level was 3.88. On 01/05/2017, he was feeling better. He was afebrile. Blood cultures remained negative. He had no new complaints. He was placed back on Ancef. Discharge instructions were given. Due to his improved and stable condition, he was discharged home to be followed by home health care with the above-stated instructions. Information collected by: Lorena Simons I submit the above information as my discharge summary. ELLIE/EDVIN Theo Cole M.D. / [id number] CC: Elmo Bethea M.D. Richard Hunter Jennings III, M.D. W. Timothy Ballard, M.D. Destin Griffin-Trussell, FNP Lisa Brooks, [facility]
--- NOTE | ~2016-12-30 | CN ---
Consultation Report [address] [place]. [address] NAME: MARGUERITE ALAN : 42 STATUS : DIS IN PAT#: [id number] AGE: 76 ADM/REG DATE : 12/30/16 MR#: [id number] REPORT SERV DATE: 01/07/17 DICTATED BY: ISREAL HERNANDEZ III DATE: 01/04/17 REPORT STATUS : Draft TRANSCRIBED BY: MODL DATE: 01/04/17 CONSULT DATE OF CONSULTATION: 01/04/2017 REASON FOR CONSULT: 1. Chronic abdominal pain. 2. Gallstones. 3. Recommendation regarding surgical management. HISTORY OF PRESENT ILLNESS: I am asked to see this 76-year-old male, hospitalized today for the above reasons. The patient was admitted to the hospital on 12/31/2016, with complications related to a previous right knee replacement. The patient has a history of end-stage renal disease. He complains of chronic vague nonlocalizing abdominal pain. The patient underwent a recent prosthetic knee redo surgery. Following this, he developed a low-grade fever. He was admitted to the hospital with these complaints. Unrelated to this, the patient complains of chronic vague abdominal pain. He describes bilateral abdominal discomfort. The pain is not necessarily related to eating. He is somewhat vague as to the location of the pain and type of pain. PAST MEDICAL HISTORY: 1. End-stage renal disease. 2. History of primary biliary cirrhosis. 3. Myelodysplastic syndrome. 4. History of diverticulosis. 5. History of coronary artery disease. 6. History of previous coronary artery bypass graft. 7. History of myocardial infarction in 2016. 8. History of pneumonia. 9. Hypertension. 10.Diabetes mellitus. 11.Frequent falls and confusion. 12.History of hepatic encephalopathy in the past requiring lactulose. 13.History of recent right knee replacement with postoperative infection. SOCIAL HISTORY: No history of tobacco or alcohol use. FAMILY HISTORY: Unremarkable. ALLERGIES: NONE. MEDICATIONS: Consultation Report [address] [place]. [address] NAME: MARGUERITE ALAN : 42 STATUS : DIS IN PAT#: [id number] AGE: 76 ADM/REG DATE : 12/30/16 MR#: [id number] REPORT SERV DATE: 01/07/17 DICTATED BY: ISREAL HERNANDEZ III DATE: 01/04/17 REPORT STATUS : Draft TRANSCRIBED BY: MODL DATE: 01/04/17 1. Albuterol. 2. Norvasc. 3. Aspirin. 4. Lipitor. 5. Symbicort. 6. Coreg. 7. Plavix. 8. Lasix. 9. Fenofibrate. 10.DiaBeta. 11.Neurontin. 12.Apresoline. 13.Monson. 14.Imdur. 15.Habitrol. 16.Zantac. 17.Coumadin. REVIEW OF SYSTEMS: The patient's 14 point review of systems is otherwise unremarkable. PHYSICAL EXAMINATION: OBJECTIVE: GENERAL: This is an obese, chronically ill appearing male, in no acute distress. He is alert and oriented x3. VITAL SIGNS: Blood pressure 149/65, temperature 98.3, and pulse 77. HEENT: Unremarkable. NEUROLOGIC: Cranial nerves 2 through 12 were normal. LUNGS: Clear. CARDIAC: Normal. ABDOMEN: Obese and protuberant, but soft and completely nontender. EXTREMITIES: Unremarkable. LABORATORY DATA: Creatinine is 3.8. Liver enzymes are unremarkable. White blood cell count 3.9, hematocrit 26, and platelet count 120,000. Gallbladder ultrasound shows gallstones with evidence for chronic cholecystitis and evidence for cirrhosis. It should be noted that the patient also has a history of melena. An endoscopy in August of this year showed 2 duodenal ulcers. ASSESSMENT: This is a 76-year-old male with 1. Chronic abdominal discomfort. The etiology for this is unclear. His symptoms are not entirely consistent with biliary colic. 2. Cholelithiasis on ultrasound, with no definite symptoms of biliary colic and certainly no evidence for acute cholecystitis at this time. Consultation Report [place] [id number] [facility] [place]. [address] NAME: MARGUERITE ALAN : 42 STATUS : DIS IN PAT#: [id number] AGE: 76 ADM/REG DATE : 12/30/16 MR#: [id number] REPORT SERV DATE: 01/07/17 DICTATED BY: ISREAL HERNANDEZ III DATE: 01/04/17 REPORT STATUS : Draft TRANSCRIBED BY: MODL DATE: 01/04/17 3. Primary biliary cirrhosis. 4. Recent right knee surgery with postoperative infection requiring admission for antibiotics. 5. Coronary artery disease. 6. History of melena. 7. History of myelodysplastic syndrome. 8. History of end-stage renal disease, dialysis dependent. 9. History of hepatic encephalopathy. 10.History of myocardial infarction 1 year ago. 11.Hypertension. 12.Diabetes mellitus. 13.History of confusion. PLAN: The patient is stable at this time. His symptoms are not entirely consistent with biliary colic. I feel that the patient's risk for surgical intervention, i.e., cholecystectomy, would be extremely high in the setting of primary biliary cirrhosis also with the patient being on Plavix and Coumadin. The risk for bleeding, hepatic failure, encephalopathy after surgery would be extremely high. The patient also has other comorbid risk factors including his diabetes and recent knee infection requiring prolonged antibiotics. For all of these reasons, I would not recommend elective cholecystectomy. I would not recommend cholecystectomy unless the patient has life-threatening complications such as severe acute cholecystitis or biliary pancreatitis. Again, based on the patient's comorbid risk factors, his coagulopathy related to Coumadin and Plavix and cirrhosis, and the fact that his symptoms are somewhat vague, not entirely consistent with biliary colic. Should he develop symptoms consistent with biliary colic or life-threatening complications, then cholecystectomy would need to be considered at that time. This plan has been explained to the patient and his questions have been answered. He understands and agrees to this as planned. I will follow him with you while he is in the hospital. RHJ/MODL Isreal Hernandez III, M.D. / [id number] CC: Prince Villegas M.D.
--- NOTE | ~2016-12-30 | HP ---
History And Physical [facility] [address] [place]. [address] NAME: MARGUERITE SARAVIA : 41 STATUS : ADM IN PAT#: [id number] AGE: 76 ADM/REG DATE : 12/30/16 MR#: [id number] REPORT SERV DATE: 12/31/16 DICTATED BY: DATE: REPORT STATUS : Draft TRANSCRIBED BY: MODL DATE: 12/31/16 DATE OF ADMISSION: 12/30/2016 REASON FOR ADMISSION: End-stage renal disease, recent right total knee with complaint of fever. A very pleasant 76-year-old male patient, who dialyzes on a Saturday, Saturday, Saturday schedule via a left upper extremity fistula. He was recently inpatient at [facility] with a right total knee replacement undertaken by Dr. Everton Alvarez. Procedure was completed on 12/19/2016. There was a set of cultures taken apparently intraoperatively which grew Staph species. Subsequently the patient was evaluated by Infectious Disease with Dr. Afshin Davis taking consultation with question of positive cultures. In review of Dr. Davis's initial consultation, the patient was initially placed on vancomycin where there was a question of contamination of culture. The culture was subsequently shown to show no growth as resulted on 12/27/2016. Mr. Saravia was sent home post his hospital stay on December 26 and returns overnight to [facility] with a complaint of onset of fevers. He was initially evaluated at [facility] and transitioned here. While in the emergency department at [facility], he received IV dosing of Levaquin as well as IV dosing of vancomycin. The patient has maintained his usual hemodialysis schedule; complains of no nausea, vomiting, or diarrhea. No chest pain. He is awake and alert this morning in bed. His son is at bedside during evaluation. PAST MEDICAL HISTORY: Positive for end-stage renal disease with dialysis at [place] in [facility] on a Saturday, Saturday, and Saturday schedule. History is also positive for arthrosclerotic cardiovascular disease with previous CABG, hypertension, diabetes, and anemia. SOCIAL HISTORY: No ETOH. No illicit drugs. Chronic tobacco use with cessation in late 2015. FAMILY HISTORY: Noncontributory. Not reviewed during this consultation and dictation. REVIEW OF SYSTEMS: Completed. Please see HPI for pertinent details. It is completed with the assistance of the patient as well as his son who was at bedside. Medications and allergies are as follows. ALLERGIES: HE LISTS NO KNOWN MEDICATION ALLERGIES. ACTIVE MEDICATIONS: Include ProAir HFA two puffs inhaled q.4 hours p.r.n.; Norvasc 5 mg p.o. daily; ASA 81 mg daily; Lipitor 40 mg p.o. at bedtime; Symbicort 2 puffs inhaled b.i.d.; Coreg 6.25 mg p.o. b.i.d.; Plavix 75 mg p.o. daily; fenofibrate 160 mg p.o. daily; Lasix 80 mg daily; gabapentin 100 mg p.o. daily; Neurontin 300 mg p.o. at bedtime; DiaBeta 5 mg p.o. daily; hydralazine 50 mg p.o. four times daily; hydrocodone 7.5/325 one tab p.o. q.6 hours p.r.n.; Imdur 240 mg daily; Habitrol 1 topical daily; and Zantac 150 mg p.o. b.i.d. History And Physical [address] [address] NAME: MARGUERITE SARAVIA : 42 STATUS : ADM [facility]#: [id number] AGE: 76 ADM/REG DATE : 12/30/16 MR#: [id number] REPORT SERV DATE: 12/31/16 DICTATED BY: DATE: REPORT STATUS : Draft TRANSCRIBED BY: EDVIN DATE: 12/31/16 PHYSICAL EXAMINATION: VITAL SIGNS: Blood pressure 135/60, temperature at 100.4, respiratory rate is 16, heart rate 82 beats per minute and regular, and 96% on 3 L per nasal cannula. GENERAL: He is an acutely ill-appearing male patient, lying in bed during evaluation. HEENT: Normocephalic and atraumatic. Normal ocular movements. No scleral icterus. No conjunctival pallor is appreciated. NECK: Supple. No thyromegaly. No JVD or mass. CHEST: Shows positive S1 and S2. No rubs or gallops. LUNGS: Diminished throughout. No rhonchi or wheezes are appreciated on auscultation. GI: Examination shows positive bowel sounds in all four quadrants. No appreciable mass or tenderness. : Examination is deferred. EXTREMITIES: Show positive pulses. No clubbing, cyanosis, or edema. He does have a left upper extremity fistula with a palpable bruit and thrill. His right lower extremity shows wrapping from midthigh to approximately amin without overt drainage reported by his son, however, is that there has been some minimal serosanguineous, according to his description, drainage which has not been cultured but has been noted on dressing changes. SKIN: Warm, dry, and intact to visualized surfaces. No rash, lesions, or ecchymosis. NEUROLOGICAL: He is neurologically intact and nonfocal and is of appropriate mood and affect. LABORATORY DATA: Pertinent labs and imaging to this evaluation are as follows: Sodium 142, potassium 3.3, chloride 108, CO2 of 22, BUN 87, creatinine 3.57, and reflected GFR at 16 mL/minute. Glucose of 193. Calcium 8.1, phosphorus 2.4, and albumin 2.5. CBC: White blood cell count of 8.7, RBC 2.32, hemoglobin 7.4, hematocrit 22.1, and platelets 114. Previous anaerobic culture collected on 12/19/2016, as of 6:15 shows no growth of anaerobes. IMPRESSION AND PLAN: This is an end-stage renal disease patient with recent clinical course as listed above, now presenting to [facility] with question of knee infection versus question of pneumonia according to previous workup at [facility]. I do not have report on imaging, undertaken at [facility], available to me. The patient and his son report low-grade temperatures onset approximately 24 to 36 hours ago with no associated nausea, vomiting, diarrhea, or chest pain. Temperatures have been low grade and he has had recent cultures of his knee taken intraoperatively here which subsequently showed no active infection. Today, we will undertake the following: We will treat the patient empirically with vancomycin and Levaquin and ask pharmacy to dose as his hemoglobin is depressed and he has a history of GI bleed, we will guaiac his stools, give him 2 units packed red cells during his hemodialysis treatment today. Treat his depressed phosphorus. Protect his left upper extremity fistula. Culture his wound. Chest x-ray; UA, C and S, check procalcitonin, and consider Infectious Disease if clinically warranted. Also request DuoNeb q.6 hours and p.r.n. while awake and modify treatment plan based on clinical presentation of the patient, laboratory results, further consultation with renal attending. History And Physical [place] [id number] [place] [address] NAME: MARGUERITE SARAVIA : 42 STATUS : ADM IN PAT#: [id number] AGE: 76 ADM/REG DATE : 12/30/16 MR#: [id number] REPORT SERV DATE: 12/31/16 DICTATED BY: DATE: REPORT STATUS : Draft TRANSCRIBED BY: EDVIN DATE: 12/31/16 /EDVIN Lexx Pang NP / [id number] CC: Prince Villegas M.D.
[~2016-12-30 23:26] MED LIST changes: +COUMADIN3 MG PO; +NORCO1 TA2 PO
[2016-12-31 06:44] LABS: BASOPHILS 0.1 %; BASOPHILS ABSOLUTE 0.01 10/3/uL (0.0-0.16); EOSINOPHILS 0.1 %; EOSINOPHILS ABSOLUTE 0.01 10/3/uL (0.0-0.53); IMMATURE GRANULOCYTES 0.6 %; IMMATURE GRANULOCYTES ABSOLUTE 0.05 10/3/uL (0.0-0.11); LYMPHOCYTES 6.1 %; LYMPHOCYTES ABSOLUTE 0.54 10/3/uL (0.67-4.30); MEAN CORPUS HGB CONC 33.5 g/dL (32.0-36.0); MEAN CORPUSCULAR HEMOGLOB 31.9 pg (26.0-34.0); MEAN CORPUSCULAR VOLUME 95.3 fL (80-100); MEAN PLATELET VOLUME 10.5 fL (9.2-13.0); MONOCYTES 8.8 %; MONOCYTES ABSOLUTE 0.78 10/3/uL (0.21-1.20); NEUTROPHILS 84.3 %; NEUTROPHILS ABSOLUTE 7.43 10/3/uL (2.02-8.40); PLATELET COUNT 114 10/3/uL (150-400); RBC DISTRIBUTION WIDTH 16.4 % (12.0-16.0)
[2016-12-31 06:47] LABS: HEMATOCRIT 22.1 % (40.0-51.0); HEMOGLOBIN 7.4 g/dL (13.6-17.8); MANUAL DIFF NO %; RED CELL COUNT 2.32 10/6/uL (4.7-6.1); WHITE BLOOD CELLS 8.8 10/3/uL (4.5-10.5)
[2016-12-31 07:01] LABS: ALBUMIN 2.5 G/DL (3.5-5.0); CALCIUM, SERUM 8.1 MG/DL (8.5-10.4); CHLORIDE, SERUM 108 MMOL/L (96-112); PHOSPHORUS, SERUM 2.4 MG/DL (2.5-4.5); POTASSIUM, SERUM 3.3 MMOL/L (3.5-5.3); SODIUM, SERUM 142 MMOL/L (135-148)
[2016-12-31 07:02] LABS: BUN (BLOOD UREA NITROGEN) 87 MG/DL (6-23); CO2 (CARBON DIOXIDE) 22 MMOL/L (24-34); CREATININE 3.57 MG/DL (0.70-1.30); GFR AFRICAN AMERICAN 18 ML/MIN (>=60); GFR NON AFRICAN AMERICAN 16 ML/MIN (>=60); GLUCOSE, SERUM 193 MG/DL (60-99)
[2016-12-31 12:40] LABS: PROCALCITONIN 12.64 ng/mL (<0.5)
[2017-01-01 06:34] LABS: BASOPHILS 0.1 %; BASOPHILS ABSOLUTE 0.01 10/3/uL (0.0-0.16); EOSINOPHILS 0.1 %; EOSINOPHILS ABSOLUTE 0.01 10/3/uL (0.0-0.53); HEMOGLOBIN 9.8 g/dL (13.6-17.8); IMMATURE GRANULOCYTES 0.6 %; IMMATURE GRANULOCYTES ABSOLUTE 0.05 10/3/uL (0.0-0.11); LYMPHOCYTES 5.9 %; LYMPHOCYTES ABSOLUTE 0.52 10/3/uL (0.67-4.30); MEAN CORPUS HGB CONC 33.2 g/dL (32.0-36.0); MEAN CORPUSCULAR HEMOGLOB 31.1 pg (26.0-34.0); MEAN CORPUSCULAR VOLUME 93.7 fL (80-100); MEAN PLATELET VOLUME 10.6 fL (9.2-13.0); MONOCYTES 8.2 %; MONOCYTES ABSOLUTE 0.73 10/3/uL (0.21-1.20); NEUTROPHILS 85.1 %; NEUTROPHILS ABSOLUTE 7.55 10/3/uL (2.02-8.40); PLATELET COUNT 112 10/3/uL (150-400); RBC DISTRIBUTION WIDTH 18.4 % (12.0-16.0); RED CELL COUNT 3.15 10/6/uL (4.7-6.1); WHITE BLOOD CELLS 8.9 10/3/uL (4.5-10.5)
[2017-01-01 06:35] LABS: HEMATOCRIT 29.5 % (40.0-51.0); MANUAL DIFF NO %
[2017-01-01 06:49] LABS: A/G RATIO 0.8 (0.7-1.9); ALBUMIN 2.6 G/DL (3.5-5.0); CALCIUM, SERUM 8.6 MG/DL (8.5-10.4); CHLORIDE, SERUM 108 MMOL/L (96-112); CO2 (CARBON DIOXIDE) 20 MMOL/L (24-34); CREATININE 3.25 MG/DL (0.70-1.30); GFR AFRICAN AMERICAN 20 ML/MIN (>=60); GFR NON AFRICAN AMERICAN 18 ML/MIN (>=60); GLOBULIN 3.4 G/DL (2.5-4.1); PHOSPHORUS, SERUM 2.9 MG/DL (2.5-4.5); POTASSIUM, SERUM 3.4 MMOL/L (3.5-5.3); SGOT(AST) 209 U/L (5-40); SGPT(ALT) 91 U/L (5-65); SODIUM, SERUM 138 MMOL/L (135-148)
[2017-01-01 06:50] LABS: ALKALINE PHOSPHATASE 107 U/L (45-117); BUN (BLOOD UREA NITROGEN) 64 MG/DL (6-23); GLUCOSE, SERUM 113 MG/DL (60-99)
[2017-01-01] MEDS ORDERED: L80 PO (18:07)
[2017-01-01] MEDS ORDERED: IMDUR120 PO (18:08)
[2017-01-01] MEDS ORDERED: ASAB PO (18:08)
[2017-01-01] MEDS ORDERED: COREG6 PO (18:08)
[2017-01-01] MEDS ORDERED: COUMADIN3 MG PO (18:08)
[2017-01-01] MEDS ORDERED: NORV5 PO (18:09)
[2017-01-01] MEDS ORDERED: NEUR100 PO (18:09)
[2017-01-01] MEDS ORDERED: NEUR300 PO (18:10)
[2017-01-01] MEDS ORDERED: LIPITOR40 PO (18:11)
[2017-01-01] MEDS ORDERED: ZANTAC 150 PO (18:11)
[2017-01-01] MEDS ORDERED: PLAVIX PO (18:11)
[2017-01-01] MEDS ORDERED: SUCR PO (18:11)
[2017-01-01] MEDS ORDERED: APRES50 PO (18:11)
[2017-01-01] MEDS ORDERED: HUMALOG SC (18:11)
[2017-01-01] MEDS ORDERED: SYMBICORT 80/4.1 INH INH (18:12)
[2017-01-01] MEDS ORDERED: LOFIB160 PO (18:12)
[2017-01-01] MEDS ORDERED: DIABETA5 PO (18:12)
[2017-01-01] MEDS ORDERED: VENTOLIN HFA INH (18:12)
[2017-01-01] MEDS ORDERED: NEBULIZER SOLUTION (18:13)
[2017-01-01] MEDS ORDERED: NORCO1 TA2 PO (18:19)
[2017-01-02 00:08] LABS: PROTIME (NOT ORD) 30.9 SEC (12.0-14.5)
[2017-01-02 08:55] LABS: ASCORBIC ACID (UR NOT ORDER) NEG (NEG); BILIRUBIN, URINE NEGATIVE (NEG); KETONE, URINE NEGATIVE (NEG); LEUKOCYTE ESTERASE(NOT OR NEG (NEG); WBC (NOT ORDERED) (RFLEX) 1 (0-5)
[2017-01-02 09:20] LABS: BASOPHILS 0.1 %; BASOPHILS ABSOLUTE 0.01 10/3/uL (0.0-0.16); EOSINOPHILS 0.4 %; EOSINOPHILS ABSOLUTE 0.03 10/3/uL (0.0-0.53); HEMATOCRIT 27.2 % (40.0-51.0); HEMOGLOBIN 9.1 g/dL (13.6-17.8); IMMATURE GRANULOCYTES 0.3 %; IMMATURE GRANULOCYTES ABSOLUTE 0.02 10/3/uL (0.0-0.11); LYMPHOCYTES 7.6 %; LYMPHOCYTES ABSOLUTE 0.53 10/3/uL (0.67-4.30); MANUAL DIFF NO %; MEAN CORPUS HGB CONC 33.5 g/dL (32.0-36.0); MEAN CORPUSCULAR HEMOGLOB 30.6 pg (26.0-34.0); MEAN CORPUSCULAR VOLUME 91.6 fL (80-100); MEAN PLATELET VOLUME 10.1 fL (9.2-13.0); MONOCYTES 9.7 %; MONOCYTES ABSOLUTE 0.68 10/3/uL (0.21-1.20); NEUTROPHILS 81.9 %; NEUTROPHILS ABSOLUTE 5.74 10/3/uL (2.02-8.40); PLATELET COUNT 121 10/3/uL (150-400); RBC DISTRIBUTION WIDTH 17.7 % (12.0-16.0); RED CELL COUNT 2.97 10/6/uL (4.7-6.1)
[2017-01-02 09:25] LABS: INTERNATIONAL NORMAL RATI 2.4 UNITS (-)
[2017-01-02 09:31] LABS: PROTIME (NOT ORD) 25.5 SEC (12.0-14.5)
[2017-01-02 09:40] LABS: ALBUMIN 2.4 G/DL (3.5-5.0); ALKALINE PHOSPHATASE 108 U/L (45-117); BUN (BLOOD UREA NITROGEN) 81 MG/DL (6-23); CALCIUM, SERUM 8.4 MG/DL (8.5-10.4); CHLORIDE, SERUM 106 MMOL/L (96-112); CO2 (CARBON DIOXIDE) 21 MMOL/L (24-34); CREATININE 3.58 MG/DL (0.70-1.30); DIRECT BILIRUBIN 0.3 MG/DL (0.0-0.4); GFR AFRICAN AMERICAN 18 ML/MIN (>=60); GFR NON AFRICAN AMERICAN 16 ML/MIN (>=60); GLUCOSE, SERUM 99 MG/DL (60-99); INDIRECT BILIRUBIN(NOT ORDER) 0.5 MG/DL (0.1-0.9); PHOSPHORUS, SERUM 3.6 MG/DL (2.5-4.5); POTASSIUM, SERUM 3.7 MMOL/L (3.5-5.3); SGOT(AST) 113 U/L (5-40); SGPT(ALT) 69 U/L (5-65); SODIUM, SERUM 139 MMOL/L (135-148); TOTAL BILIRUBIN 0.8 MG/DL (0-1.2); TOTAL PROTEIN 5.8 G/DL (6.0-8.5); VANCOMYCIN TROUGH 12.5 MCG/ML (10.0-20.0)
[2017-01-02 10:59] LABS: HEPATITIS B SURFACE ANTIGEN NON-REACTIVE (NON-REACT)
[2017-01-02 11:26] LABS: HEPATITIS C ANTIBODY NON-REACTIVE (NON-REACT)
[2017-01-02 11:27] LABS: HEPATITIS B CORE AB IGM NON-REACTIVE (NON-REAC)
[2017-01-02 11:28] LABS: HEP A ANTIBODY IGM NON-REACTIVE (NON-REACT)
[2017-01-02 14:27] LABS: PROCALCITONIN 8.99 ng/mL (<0.5)
[2017-01-03 04:36] LABS: BASOPHILS 0.2 %; BASOPHILS ABSOLUTE 0.01 10/3/uL (0.0-0.16); EOSINOPHILS 1.2 %; EOSINOPHILS ABSOLUTE 0.06 10/3/uL (0.0-0.53); HEMATOCRIT 27.7 % (40.0-51.0); HEMOGLOBIN 9.2 g/dL (13.6-17.8); IMMATURE GRANULOCYTES 0.4 %; IMMATURE GRANULOCYTES ABSOLUTE 0.02 10/3/uL (0.0-0.11); LYMPHOCYTES 9.6 %; LYMPHOCYTES ABSOLUTE 0.47 10/3/uL (0.67-4.30); MEAN CORPUS HGB CONC 33.2 g/dL (32.0-36.0); MEAN CORPUSCULAR HEMOGLOB 31.4 pg (26.0-34.0); MEAN PLATELET VOLUME 10.7 fL (9.2-13.0); MONOCYTES 10.4 %; MONOCYTES ABSOLUTE 0.51 10/3/uL (0.21-1.20); NEUTROPHILS 78.2 %; NEUTROPHILS ABSOLUTE 3.84 10/3/uL (2.02-8.40); PLATELET COUNT 116 10/3/uL (150-400); RBC DISTRIBUTION WIDTH 17.6 % (12.0-16.0); RED CELL COUNT 2.93 10/6/uL (4.7-6.1); WHITE BLOOD CELLS 4.9 10/3/uL (4.5-10.5)
[2017-01-03 04:40] LABS: MANUAL DIFF NO %; MEAN CORPUSCULAR VOLUME 94.5 fL (80-100)
[2017-01-03 04:44] LABS: INTERNATIONAL NORMAL RATI 2.3 UNITS (-); PROTIME (NOT ORD) 25.2 SEC (12.0-14.5)
[2017-01-03 04:55] LABS: A/G RATIO 0.7 (0.7-1.9); ALBUMIN 2.6 G/DL (3.5-5.0); CALCIUM, SERUM 8.4 MG/DL (8.5-10.4); CHLORIDE, SERUM 104 MMOL/L (96-112); CO2 (CARBON DIOXIDE) 24 MMOL/L (24-34); CREATININE 3.72 MG/DL (0.70-1.30); GFR AFRICAN AMERICAN 17 ML/MIN (>=60); GFR NON AFRICAN AMERICAN 15 ML/MIN (>=60); GLOBULIN 3.5 G/DL (2.5-4.1); POTASSIUM, SERUM 3.9 MMOL/L (3.5-5.3); SGOT(AST) 83 U/L (5-40); SGPT(ALT) 56 U/L (5-65); SODIUM, SERUM 138 MMOL/L (135-148); TOTAL BILIRUBIN 0.7 MG/DL (0-1.2); TOTAL PROTEIN 6.1 G/DL (6.0-8.5)
[2017-01-03 05:01] LABS: ALKALINE PHOSPHATASE 127 U/L (45-117); BUN (BLOOD UREA NITROGEN) 75 MG/DL (6-23); GLUCOSE, SERUM 207 MG/DL (60-99)
[2017-01-04 08:07] LABS: BASOPHILS 0.5 %; BASOPHILS ABSOLUTE 0.02 10/3/uL (0.0-0.16); EOSINOPHILS 1.8 %; EOSINOPHILS ABSOLUTE 0.07 10/3/uL (0.0-0.53); HEMATOCRIT 26.6 % (40.0-51.0); IMMATURE GRANULOCYTES 0.3 %; IMMATURE GRANULOCYTES ABSOLUTE 0.01 10/3/uL (0.0-0.11); LYMPHOCYTES 12.6 %; LYMPHOCYTES ABSOLUTE 0.49 10/3/uL (0.67-4.30); MEAN CORPUS HGB CONC 33.8 g/dL (32.0-36.0); MEAN CORPUSCULAR VOLUME 91.7 fL (80-100); MEAN PLATELET VOLUME 10.7 fL (9.2-13.0); MONOCYTES 10.3 %; NEUTROPHILS 74.5 %; NEUTROPHILS ABSOLUTE 2.91 10/3/uL (2.02-8.40); PLATELET COUNT 120 10/3/uL (150-400); RBC DISTRIBUTION WIDTH 17.1 % (12.0-16.0); WHITE BLOOD CELLS 3.9 10/3/uL (4.5-10.5)
[2017-01-04 08:08] LABS: MANUAL DIFF NO %
[2017-01-04 08:13] LABS: INTERNATIONAL NORMAL RATI 2.6 UNITS (-)
[2017-01-04 08:31] LABS: ALBUMIN 2.6 G/DL (3.5-5.0); ALKALINE PHOSPHATASE 128 U/L (45-117); CALCIUM, SERUM 8.6 MG/DL (8.5-10.4); CHLORIDE, SERUM 105 MMOL/L (96-112); CREATININE 3.88 MG/DL (0.70-1.30); DIRECT BILIRUBIN 0.3 MG/DL (0.0-0.4); GFR AFRICAN AMERICAN 16 ML/MIN (>=60); GFR NON AFRICAN AMERICAN 14 ML/MIN (>=60); GLUCOSE, SERUM 224 MG/DL (60-99); INDIRECT BILIRUBIN(NOT ORDER) 0.2 MG/DL (0.1-0.9); PHOSPHORUS, SERUM 3.9 MG/DL (2.5-4.5); POTASSIUM, SERUM 3.8 MMOL/L (3.5-5.3); SGOT(AST) 45 U/L (5-40); SGPT(ALT) 44 U/L (5-65); SODIUM, SERUM 138 MMOL/L (135-148); TOTAL BILIRUBIN 0.5 MG/DL (0-1.2); TOTAL PROTEIN 5.8 G/DL (6.0-8.5); VANCOMYCIN TROUGH 15.2 MCG/ML (10.0-20.0)
[2017-01-04 08:35] LABS: BUN (BLOOD UREA NITROGEN) 91 MG/DL (6-23); CO2 (CARBON DIOXIDE) 19 MMOL/L (24-34)
[2017-01-05 04:58] LABS: BASOPHILS 0.2 %; BASOPHILS ABSOLUTE 0.01 10/3/uL (0.0-0.16); EOSINOPHILS 2.9 %; EOSINOPHILS ABSOLUTE 0.12 10/3/uL (0.0-0.53); HEMATOCRIT 27.4 % (40.0-51.0); IMMATURE GRANULOCYTES ABSOLUTE 0.04 10/3/uL (0.0-0.11); LYMPHOCYTES 9.2 %; LYMPHOCYTES ABSOLUTE 0.38 10/3/uL (0.67-4.30); MEAN CORPUS HGB CONC 32.8 g/dL (32.0-36.0); MEAN CORPUSCULAR HEMOGLOB 30.7 pg (26.0-34.0); MEAN CORPUSCULAR VOLUME 93.5 fL (80-100); MEAN PLATELET VOLUME 10.7 fL (9.2-13.0); MONOCYTES 11.8 %; MONOCYTES ABSOLUTE 0.49 10/3/uL (0.21-1.20); NEUTROPHILS 74.9 %; PLATELET COUNT 129 10/3/uL (150-400); RED CELL COUNT 2.93 10/6/uL (4.7-6.1); WHITE BLOOD CELLS 4.1 10/3/uL (4.5-10.5)
[2017-01-05 05:00] LABS: MANUAL DIFF NO %
[2017-01-05 05:16] LABS: ALBUMIN 2.6 G/DL (3.5-5.0); ALKALINE PHOSPHATASE 126 U/L (45-117); CALCIUM, SERUM 8.5 MG/DL (8.5-10.4); CHLORIDE, SERUM 108 MMOL/L (96-112); CO2 (CARBON DIOXIDE) 21 MMOL/L (24-34); CREATININE 3.55 MG/DL (0.70-1.30); DIRECT BILIRUBIN 0.2 MG/DL (0.0-0.4); GFR AFRICAN AMERICAN 18 ML/MIN (>=60); GFR NON AFRICAN AMERICAN 16 ML/MIN (>=60); GLUCOSE, SERUM 193 MG/DL (60-99); INDIRECT BILIRUBIN(NOT ORDER) 0.3 MG/DL (0.1-0.9); PHOSPHORUS, SERUM 3.2 MG/DL (2.5-4.5); SGOT(AST) 38 U/L (5-40); SGPT(ALT) 36 U/L (5-65); SODIUM, SERUM 139 MMOL/L (135-148); TOTAL BILIRUBIN 0.5 MG/DL (0-1.2); TOTAL PROTEIN 5.7 G/DL (6.0-8.5)
[2017-01-05 05:18] LABS: BUN (BLOOD UREA NITROGEN) 76 MG/DL (6-23)
[2017-01-05] MEDS ORDERED: CONSTULOSE PO (14:03)
[2017-01-05] MEDS ORDERED: CEFAZ1 (14:04)
[2017-01-05] MEDS ORDERED: SUCR PO (14:07)
[2017-01-05] MEDS ORDERED: C2 PO (14:09)
== END 2017-01-05 17:18 | disposition home health service (06) | DRG 682 ==
LOC: 2SO 23:26
PROVIDERS: Internal Medicine Nephrology; Nurse Practitioner Family; Registered Nurse
DX: I12.0 Hypertensive chronic kidney disease with stage 5 chronic kidney disease or end stage renal disease (principal); N18.6 End stage renal disease; D68.32 Hemorrhagic disorder due to extrinsic circulating anticoagulants; E11.22 Type 2 diabetes mellitus with diabetic chronic kidney disease; K80.10 Calculus of gallbladder with chronic cholecystitis without obstruction; E83.39 Other disorders of phosphorus metabolism; K74.60 Unspecified cirrhosis of liver; K92.1 Melena; K21.9 Gastro-esophageal reflux disease without esophagitis; I25.10 Atherosclerotic heart disease of native coronary artery without angina pectoris; D64.9 Anemia, unspecified; R50.9 Fever, unspecified; I25.2 Old myocardial infarction; Z96.651 Presence of right artificial knee joint; K57.90 Diverticulosis of intestine, part unspecified, without perforation or abscess without bleeding; T45.515A Adverse effect of anticoagulants, initial encounter; D46.9 Myelodysplastic syndrome, unspecified; K26.7 Chronic duodenal ulcer without hemorrhage or perforation; Z87.11 Personal history of peptic ulcer disease; Z99.2 Dependence on renal dialysis; Z95.1 Presence of aortocoronary bypass graft; Z95.5 Presence of coronary angioplasty implant and graft; Z86.010 Personal history of colon polyps
CPT/HCPCS: 36415; 71010; 76705; 80053; 80069; 80074; 80076; 80202; 81001; 82140; 82150; 82272; 82962; 83036; 83690; 83735; 84145; 85025; 85610; 86255; 86850; 86900; 86901; 86920; 86922; 87040; 94640; 97161-GP; 97165-GO; A9270-GY; C9113; G0257; J1956; J3370; P9016; P9047